=== PATIENT | male | born 1950 | race African-American/Black ===

== ENCOUNTER 2019-11-10 19:28 | IRF | payer MEDICARE, SELFPAY ==
[2019-11-10 18:49] VITALS: BMI 31.4
[2019-11-10 18:57] VITALS: BP 150/80; PULSE 89; RESP 20; TEMP 36.5; O2SAT 100
[2019-11-10 18:58] VITALS: BMI 31.4
--- NOTE | 2019-11-10 19:11 | PC.NURSE ---
This patient, Edison Tabares, was admitted to [facility] Room 223-02. Patient/family oriented to hospital policies and general routines including ID bracelet, bed and alarms, visiting hours, pain management, procedures, bathroom and other care routines, personal items, smoking policy, room service/diet, and visiting hours. Valuables list has been completed. Information on how to activate the Rapid Response Team has been discussed. Patient/Family are encouraged to report perceived risks to care and to ask questions if they do not understand what they are told or what they should do.
[2019-11-10 22:00] VITALS: BP 117/57; PULSE 62; RESP 16; TEMP 36.4; O2SAT 100
[2019-11-11 05:08] LABS: Basophils Percent Auto 0.4 % (0.2-1.2); Eosinophils Absolute Auto 0.3 K/mm3 (0-0.3); Eosinophils Percent Auto 3.6 % (0-4.4); Hematocrit 40.4 % (42.0-52.0); Hemoglobin 13.7 g/dL (14.0-18.0); Immature Granulocyte Absolute 0.02 K/mm3 (0.00-0.031); Immature Granulocyte Percent A 0.3 % (0-0.5); Lymphocytes Absolute Auto 2.25 K/mm3 (0.9-3.2); Mean Corpuscular HGB Conc 33.9 g/dl (32-36); Mean Corpuscular Hemoglobin 28.1 pg (26-34); Mean Platelet Volume 10.7 fl (7.4-10.4); Monocytes Absolute Auto 0.9 K/mm3 (0.1-0.6); Monocytes Percent Auto 11.5 % (2.6-8.5); Neutrophils Absolute Auto 4.1 K/mm3 (1.3-6.7); Neutrophils Percent Auto 54.2 % (45.5-73.1); Platelet Count Result 298 k/mm3 (150-375); Red Blood Count 4.87 M/mm3 (4.6-6.20); Red Cell Distribution Width 16.4 % (11.5-14.5); White Blood Count 7.5 K/mm3 (4.5-10.0)
[2019-11-11 05:24] LABS: Anion Gap 10 mmol/L (8-16); Blood Urea Nitrogen 21 mg/dL (9-20); Calcium 9.2 mg/dL (8.4-10.2); Carbon Dioxide 24 mmol/L (22-30); Chloride 109 mmol/L (98-107); Cholesterol 143 mg/dL (0-200); Estimated CRCL calculation 45 ml/min; Estimated Glomerular Filt Rate > 60; Glucose 100 mg/dL (75-110); HDL Direct 25 mg/dL; Potassium 3.9 mmol/L (3.4-5.0); Sodium 143 mmol/L (137-145); Triglycerides 113 mg/dL (<150)
[2019-11-11 05:35] LABS: LDL Cholesterol Direct 85 mg/dL
[2019-11-11 06:00] VITALS: BP 180/86; PULSE 64; RESP 18; TEMP 36.4; O2SAT 99
[2019-11-11] MEDS: hydrALAZINE HCL 25 MG TABLET PO ×3 (08:24→17:43)
[2019-11-11] MEDS: ATORVASTATIN 40 MG TABLET 80 MG PO (08:24)
[2019-11-11 08:25] VITALS: PULSE 64; RESP 18; O2SAT 99
[2019-11-11] MEDS: ASPIRIN 325 MG TABLET PO (08:25)
[2019-11-11] MEDS: CLOPIDOGREL BISULFATE 75 MG TABLET PO (08:25)
[2019-11-11] MEDS: amLODIPine BESYLATE 5 MG TABLET 10 MG PO (08:25)
--- NOTE | 2019-11-11 10:00 | PM.IMHP ---
H&P: HPI History of Present Illness Date/Time: 11/11/19 12:04 Chief complaint: CVA Narrative: Edison Tabares is a 69 year old male the primary rehab impairment category is stroke The etiologic diagnosis is, acute infarct in the right thalamus/ posterior limb of internal capsule. The patient was seen [id number] on November 11, 2019 at 10:00 a.m. The patient is a 69-year-old right-handed Afro-[place] male with a prior medical history of hypertension, hyperlipidemia and peripheral arterial disease on Plavix for the same who presented to [facility] Emergency Department on November 07, 2019 with new left-sided weakness. The patient reported that he had no issues when he went to bed a little after midnight on November 07, 2019 upon waking up at about 8:00 a.m. the patient noticed new left-sided weakness, but he fell back and asleep until noon. The patient then presented to the emergency department and was found to have with left-sided weakness, left upper extremity ataxia and extension and dysarthria. NIH SS of 3. Head CT showed no acute intracranial abnormalities. The patient did not receive tPA because he presented out of the window. The patient had elevated blood pressure at 160/100. He was started on hydralazine 25 milligram t.i.d. and labetalol 10 milligram injection p.r.n.. He will continue hydralazine 25 milligram t.i.d. for now and restart home medication patient which is amlodipine 10 milligram. The MRI revealed an acute infarct in the right thalamus/posterior limb of the internal capsule, microvascular ischemic disease with remote lacunar infarcts in bilateral basal ganglia and thalami with global brain parenchymal loss. Carotid Doppler showed less than 50% stenosis in bilateral internal carotid arteries. Neurology was consulted he was placed on aspirin and Plavix as well as an increase of atorvastatin to 80 milligram. TTE with normal LV size and systolic function, impaired LV relaxation. Nursing reported a fall on November 10, 2019 at approximately 3:46 a.m.. The patient reported he was trying to get out of the bed to go to the bathroom and fell on his hands and knees. Patient denies hitting his head pain or worsening weakness. Physician reported unchanged neurological examination. The patient is awake alert well oriented. He did not receive the loop recorder prior to discharge as the physician decided otherwise. Physical examination continues to reveal left-sided weakness left upper extremity ataxia and extension and left-sided neglect dysarthria balance impairment decreased gross motor control and decreased safety awareness. The patient is discharged T on Lovenox 40 milligram daily subcutaneously and aspirin 325 milligram p.o. daily The patient has not traveled outside the [place] or had contact with someone who is ill that has traveled outside the [place] in the past 21 days. The patient has not traveled to an area of the [place] that is experiencing known transmission of the Coronavirus and has not had close personal contact with anyone that has. The patient does not have a fever. The patient is not experiencing lower except lower respiratory illness symptoms. Therapy was initiated at the acute care facility and the patient was transferred to from [facility] on November 10, 2019. The patient has had no major surgery in the past 100 days. Patient has had falls in the past year. The patient has had no falls with injury in the past year. Past medical history, hypertension, hyperlipidemia, peripheral arterial disease on Plavix, and right eye loss during welding accident. 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 The patient lives with his significant other in 1 level home with 3 stairs to enter. The patient reported he was independent in all ADLs and IADLs less and mobility with assistive device in fact without any assistive device as he suni
[2019-11-11 14:00] VITALS: BP 127/63; PULSE 92; RESP 20; TEMP 36.8; O2SAT 100
--- NOTE | 2019-11-11 14:12 | RPD ---
INDIVIDUALIZED PLAN OF CARE FOR Edison Tabares Brief Synthesis of Pre-Admission Screen, Post-Admission Evaluation and Therapy Evaluations: The patient presents to rehab with acute infarct in the right thalamus/posterior limb internal capsule. Comorbidities include hypertension, hyperlipidemia, peripheral arterial disease (on plavix), right eye loss during welding accident, left-sided weakness, LUE ataxia and extinction, left-sided neglect, dysarthria, balance impairment, and decreased gross motor control. The complexity of the patient's medical management, nursing, and therapy needs require an inpatient rehab hospital stay with a physician-led interdisciplinary team approach. The patient?s needs will be best met in an intensive program vs. at a lower level of care. The patient requires physician services for neurology services, medical oversight, and coordination of care. The patient needs physician monitoring and treatment of new stroke, hypertension, falls/balance issues, monitoring for adverse reactions to new medications, monitoring of infection, and pain control. The patient requires nursing services for frequent neuro checks, anticoagulation therapy, medication management and education, pressure relief and skin care management, monitoring of labs, bowel and bladder training, and fall/safety precautions. Deficits include:ADLs, Balance, Cognition, Endurance, Family Training/Education, Mobility, Pain Management, ROM, Safety, Strength, and Transfers Hearing Aid Specialist/Case Management for: Discharge Planning and Patient/Family Counseling Physical Therapy: 5 days per week for 90 minutes. Treatments may include: Therapeutic Exercise, Gait Training, Neuromuscular Re-education, Transfer Training, Community Reintegration, Bed Mobility, Patient/Family Education, Wheelchair Mobility Group Therapy/Concurrent Therapy Rationales: -Improve attention span during functional activities in a distracted environment. -Enhance problem solving and/or adequate judgment skills during functional activities in a distracted environment. -Promote increased safety awareness in a distracted environment to reduce fall risk with functional tasks, transfers, and ambulation to allow a more safe, self-sufficient return to the home environment. -Improve dynamic balance skills to promote safety and independence with functional activities in a distracted environment for maximum gain. Occupational Therapy: 5 days per week for 90 minutes. Treatments may include: Therapeutic Exercise, Therapeutic Activity, Cognitive Training, Self-Care Transfer Training, Community Reintegration, Home Management, Patient/Family Education, Wheelchair Mobility Training, Energy Conservation Training Group Therapy/Concurrent Therapy Rationales: -Allow therapist to observe and teach generalization and carry-over of skills learned in individual therapy. -Enhance problem solving and sequencing skills during therapeutic activities in a distracted environment. -Promote increased safety awareness in a realistic setting to reduce fall risk with functional tasks due to visual and verbal distractions. -Increase functional level with ADLs, ADL transfers and use of adaptive equipment through therapeutic activities with others while promoting safety to allow a more safe, self-sufficient return home. Medical Prognosis: Good Anticipated Length of Stay: 14 days Rehab Goals: Eating Goal: 06-Independent Oral Hygiene Goal: 06-Independent Toileting Hygiene Goal: 06-Independent Shower/Bathe Self Goal: 06-Independent Upper Body Dressing Goal: 06-Independent Lower Body Dressing Goal: 06-Independent Putting On/Taking Off Footwear Goal: 06-Independent Rolling Left and Right Goal: 06-Independent Sit to Lying Goal: 06-Independent Lying to Sitting on Side of Bed Goal: 06-Independent Sit to Stand Goal: 06-Independent Chair/[id number] Transfer Goal: 06-Independent Toilet Transfer Goal: 06-Independent Car Transfer Goal: 06-Independent Walk
[2019-11-11 14:20] VITALS: BMI 31.4
[2019-11-11 20:00] VITALS: O2SAT 100
[2019-11-11 21:49] VITALS: BP 163/73; PULSE 68; RESP 20; TEMP 37.2; O2SAT 100
[2019-11-12 06:00] VITALS: BP 138/82; PULSE 82; RESP 20; TEMP 36.2; O2SAT 100
[2019-11-12] MEDS: amLODIPine BESYLATE 5 MG TABLET 10 MG PO (10:12)
[2019-11-12] MEDS: ATORVASTATIN 40 MG TABLET 80 MG PO (10:12)
[2019-11-12] MEDS: ASPIRIN 325 MG TABLET PO (10:12)
[2019-11-12] MEDS: hydrALAZINE HCL 25 MG TABLET PO ×3 (10:13→17:10)
[2019-11-12] MEDS: CLOPIDOGREL BISULFATE 75 MG TABLET PO (10:13)
[2019-11-12 14:00] VITALS: BP 159/76; PULSE 95; RESP 20; TEMP 36.8; O2SAT 100
[2019-11-12 22:00] VITALS: BP 149/65; PULSE 89; RESP 19; TEMP 36.1; O2SAT 98
[2019-11-13 06:00] VITALS: BP 151/88; PULSE 83; RESP 18; TEMP 36.7; O2SAT 97
[2019-11-13] MEDS: amLODIPine BESYLATE 5 MG TABLET 10 MG PO (08:47)
[2019-11-13] MEDS: CLOPIDOGREL BISULFATE 75 MG TABLET PO (08:48)
[2019-11-13] MEDS: ATORVASTATIN 40 MG TABLET 80 MG PO (08:48)
[2019-11-13] MEDS: hydrALAZINE HCL 25 MG TABLET PO ×3 (08:48→17:14)
[2019-11-13] MEDS: ASPIRIN 325 MG TABLET PO (08:48)
[2019-11-13 14:00] VITALS: BP 135/62; PULSE 86; RESP 20; TEMP 36.4; O2SAT 100
--- NOTE | 2019-11-13 17:14 | WPDNEURORHBP ---
Subjective Date/time seen: 11/13/19 17:14 Interval history: this 69-year-old Afro[place]er gentleman is here after having had stroke with a hemiparesis from which he is improving he is happy with the care he is receiving denies any headache nausea vomiting chest pain shortness of breath fever chills sore throat Review of Systems Review of Systems: All systems reviewed & are unremarkable except as noted in HPI and below Functional Status Ambulation Ability Ability to Ambulate 10 Feet: Minimum Assistance X 1 Ability to Ambulate 50 Feet With 2 Turns: Minimum Assistance X 1 Ambulation Assistive Devices: Walker, Wheeled Exam Const: General: comfortable and no acute distress HENMT: General nose exam: Normal nares present Mouth: Yes moist mucous membranes Eyes: Other: blind in the right eye from the welding accident in the distant past Neck: Neck: supple and no JVD Resp: Effort & Inspection: normal respiratory effort Auscultation: clear to auscultation bilaterally Cardio: Rate: regular rate Rhythm: regular rhythm GI: GI Palp: Yes Soft to palpation Auscultation: normal bowel sounds Skin: General skin exam: normal color and no rashes or lesions noted Neuro: Other: patient is awake alert well oriented with improving left-sided hemiparesis Extrem: General: normal to inspection Psych: Mental Status: mental status grossly normal Objective Data Vital Signs Vital Signs: Vital Signs - 24 hr 11/12/19 22:00 11/13/19 06:00 11/13/19 14:00 Temperature 36.1 C L 36.7 C 36.4 C Pulse Rate 89 83 86 Respiratory Rate 19 18 20 Blood Pressure 149/65 H 151/88 H 135/62 Pulse Oximetry 98 97 100 Intake/Output Intake/Output: Intake & Output 11/10/19 11/11/19 11/12/19 11/13/19 23:59 23:59 23:59 23:59 Intake Total 720 720 480 Balance 720 720 480 Meds/Results Medications: Active Medications Generic Name Dose Route Start Last Admin Trade Name Freq PRN Reason Stop Dose Admin Amlodipine Besylate 10 mg 11/11/19 09:00 11/13/19 08:47 Norvasc PO 10 mg DAILY NELDA Administration Aspirin 325 mg 11/11/19 09:00 11/13/19 08:48 Aspirin PO 11/29/19 09:01 325 mg DAILY NELDA Administration Atorvastatin Calcium 80 mg 11/11/19 09:00 11/13/19 08:48 Lipitor PO 80 mg DAILY NELDA Administration Clopidogrel Bisulfate 75 mg 11/11/19 09:00 11/13/19 08:48 Plavix PO 75 mg DAILY NELDA Administration Hydralazine HCl 25 mg 11/11/19 09:00 11/13/19 14:36 Apresoline Tablet PO 25 mg TID NELDA Administration Progress Note: A&P Assessment and Plan (1) Peripheral vascular disease: Code(s): I73.9 - Peripheral vascular disease, unspecified Status: Acute (2) Alcohol use: Code(s): Z72.89 - Other problems related to lifestyle Status: Acute (3) Smoking: Code(s): F17.200 - Nicotine dependence, unspecified, uncomplicated Status: Acute (4) Hypertension: Code(s): I10 - Essential (primary) hypertension Status: Acute (5) Left hemiparesis: Code(s): G81.94 - Hemiplegia, unspecified affecting left nondominant side Status: Acute (6) Stroke: Code(s): I63.9 - Cerebral infarction, unspecified Status: Acute (7) Blindness of right eye: Code(s): H54.40 - Blindness, one eye, unspecified eye Status: Acute Additional Plan we will continue present medical management PT OT and gait training
[2019-11-13 21:07] VITALS: BP 147/70; PULSE 90; RESP 18; TEMP 36.4; O2SAT 100
[2019-11-14 05:45] VITALS: BP 154/90; PULSE 96; RESP 20; TEMP 36.7; O2SAT 100
[2019-11-14] MEDS: hydrALAZINE HCL 25 MG TABLET PO ×3 (08:32→18:05)
[2019-11-14] MEDS: CLOPIDOGREL BISULFATE 75 MG TABLET PO (08:32)
[2019-11-14] MEDS: ATORVASTATIN 40 MG TABLET 80 MG PO (08:32)
[2019-11-14] MEDS: amLODIPine BESYLATE 5 MG TABLET 10 MG PO (08:32)
[2019-11-14] MEDS: ASPIRIN 325 MG TABLET PO (08:32)
--- NOTE | 2019-11-14 10:44 | P.PNNERE_ITS ---
Subjective Date/time seen: 11/14/19 10:44 69 years old male admitted to the rehab with acute infarct of the right thalamus, posterior limb of the internal capsule and has an ongoing history of 1. Hypertension 2. Hyperlipidemia 3. Peripheral arterial disease routine lab is normal except creatinine of 1.4 Review of Systems Review of Systems: All systems reviewed & are unremarkable except as noted in HPI and below Functional Status Ambulation Ability Ability to Ambulate 10 Feet: Minimum Assistance X 1 Ability to Ambulate 50 Feet With 2 Turns: Minimum Assistance X 1 Ambulation Assistive Devices: Walker, Wheeled Exam Narrative: Exam Narrative: examination reveals him to be awake alert in no obvious acute distress ear nose throat examination normal with no drainage from the nose and moist mucous membranes of the oral cavity obvious blindness in the right eye from the welding accident neck is supple with no JVD no restricted range of motion. Respiration clear with no rhonchi or crepitation. Heart regular. Abdomen is soft with normal bowel sounds. Skin clear. Neurological examination reveals him to be awake alert with left hemiparesis which is improving Objective Data Vital Signs Vital Signs: Vital Signs - 24 hr 11/13/19 14:00 11/13/19 21:07 11/14/19 05:45 Temperature 36.4 C 36.4 C 36.7 C Pulse Rate 86 90 96 Respiratory Rate 20 18 20 Blood Pressure 135/62 147/70 H 154/90 H Pulse Oximetry 100 100 100 Intake/Output Intake/Output: Intake & Output 11/11/19 11/12/19 11/13/19 11/14/19 23:59 23:59 23:59 23:59 Intake Total 720 720 720 240 Balance 720 720 720 240 Meds/Results Medications: Active Medications Generic Name Dose Route Start Last Admin Trade Name Freq PRN Reason Stop Dose Admin Amlodipine Besylate 10 mg 11/11/19 09:00 11/14/19 08:32 Norvasc PO 10 mg DAILY [facility] Administration Aspirin 325 mg 11/11/19 09:00 11/14/19 08:32 Aspirin PO 11/29/19 09:01 325 mg DAILY NELDA Administration Atorvastatin Calcium 80 mg 11/11/19 09:00 11/14/19 08:32 Lipitor PO 80 mg DAILY NELDA Administration Clopidogrel Bisulfate 75 mg 11/11/19 09:00 11/14/19 08:32 Plavix PO 75 mg DAILY NELDA Administration Hydralazine HCl 25 mg 11/11/19 09:00 11/14/19 08:32 Apresoline Tablet PO 25 mg TID NELDA Administration Progress Note: A&P Assessment and Plan (1) Blindness of right eye: Code(s): H54.40 - Blindness, one eye, unspecified eye Status: Acute (2) Peripheral vascular disease: Code(s): I73.9 - Peripheral vascular disease, unspecified Status: Acute (3) Alcohol use: Code(s): Z72.89 - Other problems related to lifestyle Status: Acute (4) Smoking: Code(s): F17.200 - Nicotine dependence, unspecified, uncomplicated Status: Acute (5) Hypertension: Code(s): I10 - Essential (primary) hypertension Status: Acute (6) Stroke: Code(s): I63.9 - Cerebral infarction, unspecified Status: Acute (7) Left hemiparesis: Code(s): G81.94 - Hemiplegia, unspecified affecting left nondominant side Status: Acute Additional Plan management will be continued as such
[2019-11-14 14:00] VITALS: BP 146/62; PULSE 81; RESP 20; TEMP 35.9; O2SAT 100
[2019-11-14 22:00] VITALS: BP 118/56; PULSE 91; RESP 18; TEMP 36.2; O2SAT 100
[2019-11-15 06:00] VITALS: BP 153/73; PULSE 85; RESP 19; TEMP 36.4; O2SAT 97
[2019-11-15] MEDS: amLODIPine BESYLATE 5 MG TABLET 10 MG PO (08:02)
[2019-11-15] MEDS: ASPIRIN 325 MG TABLET PO (08:02)
[2019-11-15] MEDS: hydrALAZINE HCL 25 MG TABLET PO ×3 (08:02→18:14)
[2019-11-15] MEDS: CLOPIDOGREL BISULFATE 75 MG TABLET PO (08:03)
[2019-11-15] MEDS: ATORVASTATIN 40 MG TABLET 80 MG PO (08:03)
--- NOTE | 2019-11-15 09:29 | PCPTNOTE ---
Edison Tabares was evaluated for a wheeled waker on 11/15/2019 by this physical therapist. The wheeled walker will resolve patient's mobility limitations and will be used for ADL's within the home. The patient can safely use the wheeled walker. ?The wheeled walker will resolve the patient?s mobility deficits, including endurance, balance and LE weakness.
--- NOTE | 2019-11-15 09:31 | PCPTNOTE ---
Addendum entered by Coni Zepeda PT 11/15/19 09:37: Seat to floor no greater than 18 (height 5'5 ) Original Note: Coni Zepeda PT completed an inpatient rehab wheelchair evaluation on Edison Tabares on 11/15/2019. The patient is unable to safely and independently ambulate household distances due to their current impairments. Their diagnosis is CVA and their impairments include decreased strength, decreased endurance, decreased range of motion, decreased balance, lower extremity weakness, and ataxia. Mr. Tabares's weight bearing status is weight-bearing as tolerated on the bilateral lower legs. The patient demonstrates significant functional mobility limitations that impair their ability to participate in mobility-related activities of daily living (MRADLs), including toileting, feeding, dressing, grooming, and bathing in the customary locations in the home. These limitations cannot be sufficiently resolved by the use of an appropriately fitted cane or walker. It is recommended that the patient utilize a wheelchair for functional mobility within the home in order to facilitate optimal safety, independence and participation in all MRADL's and adequately access their home environment on a regular basis. The patient's home provides adequate access between rooms, maneuvering space, and surfaces to accommodate the recommended wheelchair. The use of a wheelchair for functional mobility is strongly recommended and the patient is receptive to using the wheelchair. The use of this wheelchair will significantly improve the patient's ability to participate in MRADLS and the patient will use it on a regular basis in the home. This will facilitate optimal safety, independence, and participation. The patient has demonstrated sufficient physical and mental capabilities needed to safely propel a manual wheelchair that is provided in the home during a typical day. Recommended Wheelchair Frame: Standard Recommended Wheelchair Size: 18 x18 Recommended Wheelchair Cushion: standard Wheelchair Leg Recommendations: bilateral swing away -Anti-tippers are recommended due to patient demonstrating increased risk for falls. They would benefit from anti-tippers with added safety and stabilization. _Coni Zepeda PT ___11/15/19 Evaluating Therapist Date I agree with and certify that the above recommendation is medically necessary. Referring Physician Date
--- NOTE | 2019-11-15 13:09 | WPDNEURORHBP ---
Subjective Date/time seen: 11/15/19 13:09 Interval history: this 69-year-old gentleman is here after having had stroke with the left-sided weakness is progressing quite well he walked 150 feet with wheel walker the reports from the nurse occupational therapist physical therapist is quite good likewise the speech therapy is also good he will need the family training. Denies any headache nausea vomiting chest pain shortness of breath fever chills sore throat Review of Systems Review of Systems: All systems reviewed & are unremarkable except as noted in HPI and below Functional Status Ambulation Ability Ability to Ambulate 10 Feet: Minimum Assistance X 1 Ability to Ambulate 50 Feet With 2 Turns: Minimum Assistance X 1 Ambulation Assistive Devices: Walker, Wheeled Exam Const: General: comfortable and no acute distress HENMT: General nose exam: Normal nares present Mouth: Yes moist mucous membranes Eyes: General: appearance normal, both eyes and all related structures Neck: Neck: supple and no JVD Resp: Effort & Inspection: normal respiratory effort Auscultation: clear to auscultation bilaterally Cardio: Rate: regular rate Rhythm: regular rhythm GI: GI Palp: Yes Soft to palpation Auscultation: normal bowel sounds Skin: General skin exam: normal color and no rashes or lesions noted Neuro: Other: patient is awake and alert well oriented the blindness in the right eye which is of almost 20 years duration remains stable is functioning with the left eye quite well his hemiparesis is improving Extrem: General: normal to inspection Psych: Mental Status: mental status grossly normal Objective Data Vital Signs Vital Signs: Vital Signs - 24 hr 11/14/19 14:00 11/14/19 22:00 11/15/19 06:00 Temperature 35.9 C L 36.2 C L 36.4 C Pulse Rate 81 91 85 Respiratory Rate 20 18 19 Blood Pressure 146/62 H 118/56 L 153/73 H Pulse Oximetry 100 100 97 Intake/Output Intake/Output: Intake & Output 11/12/19 11/13/19 11/14/19 11/15/19 23:59 23:59 23:59 23:59 Intake Total 720 720 840 240 Balance 720 720 840 240 Meds/Results Medications: Active Medications Generic Name Dose Route Start Last Admin Trade Name Freq PRN Reason Stop Dose Admin Amlodipine Besylate 10 mg 11/11/19 09:00 11/15/19 08:02 Norvasc PO 10 mg DAILY NELDA Administration Aspirin 325 mg 11/11/19 09:00 11/15/19 08:02 Aspirin PO 11/29/19 09:01 325 mg DAILY NELDA Administration Atorvastatin Calcium 80 mg 11/11/19 09:00 11/15/19 08:03 Lipitor PO 80 mg DAILY NELDA Administration Clopidogrel Bisulfate 75 mg 11/11/19 09:00 11/15/19 08:03 Plavix PO 75 mg DAILY NELDA Administration Hydralazine HCl 25 mg 11/11/19 09:00 11/15/19 13:04 Apresoline Tablet PO 25 mg TID NELDA Administration Progress Note: A&P Assessment and Plan (1) Blindness of right eye: Code(s): H54.40 - Blindness, one eye, unspecified eye Status: Acute (2) Peripheral vascular disease: Code(s): I73.9 - Peripheral vascular disease, unspecified Status: Acute (3) Alcohol use: Code(s): Z72.89 - Other problems related to lifestyle Status: Acute (4) Smoking: Code(s): F17.200 - Nicotine dependence, unspecified, uncomplicated Status: Acute (5) Hypertension: Code(s): I10 - Essential (primary) hypertension Status: Acute (6) Left hemiparesis: Code(s): G81.94 - Hemiplegia, unspecified affecting left nondominant side Status: Acute (7) Stroke: Code(s): I63.9 - Cerebral infarction, unspecified Status: Acute Additional Plan discussed the team conference with the significant other on the telephone the progress was appraised to her and also to the patient tentative discharge planning is for November 22, 2019 and family training will be needed he will need the wheel walker
[2019-11-15 14:00] VITALS: BP 141/94; PULSE 98; RESP 16; TEMP 36.6; O2SAT 100
[2019-11-15 20:00] VITALS: PULSE 91; RESP 18; O2SAT 100
[2019-11-15 22:00] VITALS: BP 100/48; PULSE 91; RESP 18; TEMP 36.6; O2SAT 100
[2019-11-16 06:00] VITALS: BP 144/63; PULSE 84; RESP 17; TEMP 37.1; O2SAT 99
[2019-11-16] MEDS: amLODIPine BESYLATE 5 MG TABLET 10 MG PO (08:19)
[2019-11-16] MEDS: hydrALAZINE HCL 25 MG TABLET PO ×3 (08:20→17:03)
[2019-11-16] MEDS: CLOPIDOGREL BISULFATE 75 MG TABLET PO (08:20)
[2019-11-16] MEDS: ASPIRIN 325 MG TABLET PO (08:20)
[2019-11-16] MEDS: ATORVASTATIN 40 MG TABLET 80 MG PO (08:21)
--- NOTE | 2019-11-16 11:30 | PCOTNOTE ---
Mr. Tabares was evaluated for a tub transfer bench 11/16/19 by this occupational therapist. The tub transfer bench will resolve that patient?s self-care limitations in bathing and will be used for ADL?s within the home. The patient is unable to step over edge of tub safely or tolerate standing while maintaining balance for completion of bathing due to left weakness, left neglect, ataxia, and impaired balance following CVA. The patient can safely use the tub transfer bench. The patient?s significant other and daughter have participated in family training and exhibit good understanding of safety with assisting patient with use. The tub transfer bench will decrease caregiver burden and allow for safety with care of patient in his home. I agree with and certify that the above recommendation is medically necessary. Referring Physician Date
--- NOTE | 2019-11-16 12:54 | PCDIET ---
Nutrition Follow-Up Complete: Nutrition Diagnosis: Involuntary weight loss related to decreased appetite as evidenced by patient report of 2-13 pound weight loss without trying and associated poor appetite. Nutrition Goal: Patient to consume 50% of meals/supplements or greater and maintain weight Goal met. Patient consuming 100% of meals on regular diet + Ensure Enlive supplement. Patient would like to continue Enlive which is acceptable; however, encouraged patient to moderate empty kcal intake (i.e. soda and cookies with lunch). Heart healthy diet discussed with patient and spouse. Weight management also encouraged. Last recorded weight is 85.5 kg. Recommend obtaining new weight. Bowel Motility: Last BM documented on 11/13/19. Labs Reviewed: No new BMP available. Meds Noted: Norvasc, Plavix, Apresoline Additional Notes: No documented skin breakdown. Will continue to monitor with same goal. Nutrition Monitoring and Evaluation: Follow up every 7 days.
[2019-11-16 14:00] VITALS: BP 122/75; PULSE 92; RESP 20; TEMP 36.9; O2SAT 100
--- NOTE | 2019-11-16 15:07 | WPDNEURORHBP ---
Subjective Date/time seen: 11/16/19 15:07 Interval history: this 69-year-old is here status post stroke with left-sided hemiparesis his doing fairly well making progress denies any headache nausea vomiting chest pain shortness of breath fever chills sore throat Review of Systems Review of Systems: All systems reviewed & are unremarkable except as noted in HPI and below Functional Status Ambulation Ability Ability to Ambulate 10 Feet: Contact Guard Ability to Ambulate 50 Feet With 2 Turns: Contact Guard Ability to Ambulate 150 Feet: Contact Guard Ambulation Assistive Devices: Walker, Wheeled Exam Const: General: comfortable and no acute distress HENMT: General nose exam: Normal nares present Mouth: Yes moist mucous membranes Eyes: General: appearance normal, both eyes and all related structures Neck: Neck: supple and no JVD Resp: Effort & Inspection: normal respiratory effort Auscultation: clear to auscultation bilaterally Cardio: Rate: regular rate Rhythm: regular rhythm GI: GI Palp: Yes Soft to palpation Auscultation: normal bowel sounds Skin: General skin exam: normal color and no rashes or lesions noted Neuro: Other: patient is awake alert well oriented in time place and person has normal speech and language function 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 and improving left-sided hemiparesis Extrem: General: normal to inspection Psych: Mental Status: mental status grossly normal Objective Data Vital Signs Vital Signs: Vital Signs - 24 hr 11/15/19 20:00 11/15/19 22:00 11/16/19 06:00 Temperature 36.6 C 37.1 C Pulse Rate 91 91 84 Respiratory Rate 18 18 17 Blood Pressure 100/48 L 144/63 H Pulse Oximetry 100 100 99 Intake/Output Intake/Output: Intake & Output 11/13/19 11/14/19 11/15/19 11/16/19 23:59 23:59 23:59 23:59 Intake Total 720 840 950 240 Balance 720 840 950 240 Meds/Results Medications: Active Medications Generic Name Dose Route Start Last Admin Trade Name Freq PRN Reason Stop Dose Admin Amlodipine Besylate 10 mg 11/11/19 09:00 11/16/19 08:19 Norvasc PO 10 mg DAILY NELDA Administration Aspirin 325 mg 11/11/19 09:00 11/16/19 08:20 Aspirin PO 11/29/19 09:01 325 mg DAILY NELDA Administration Atorvastatin Calcium 80 mg 11/11/19 09:00 11/16/19 08:21 Lipitor PO 80 mg DAILY NELDA Administration Clopidogrel Bisulfate 75 mg 11/11/19 09:00 11/16/19 08:20 Plavix PO 75 mg DAILY NELDA Administration Hydralazine HCl 25 mg 11/11/19 09:00 11/16/19 13:25 Apresoline Tablet PO 25 mg TID NELDA Administration Polyethylene Glycol 17 gm 11/16/19 21:00 Miralax PO HS NELDA Senna 17.2 mg 11/16/19 21:00 Senokot Tablet PO HS NELDA Progress Note: A&P Assessment and Plan (1) Blindness of right eye: Code(s): H54.40 - Blindness, one eye, unspecified eye Status: Acute (2) Peripheral vascular disease: Code(s): I73.9 - Peripheral vascular disease, unspecified Status: Acute (3) Alcohol use: Code(s): Z72.89 - Other problems related to lifestyle Status: Acute (4) Smoking: Code(s): F17.200 - Nicotine dependence, unspecified, uncomplicated Status: Acute (5) Hypertension: Code(s): I10 - Essential (primary) hypertension Status: Acute (6) Left hemiparesis: Code(s): G81.94 - Hemiplegia, unspecified affecting left nondominant side Status: Acute (7) Stroke: Code(s): I63.9 - Cerebral infarction, unspecified Status: Acute Additional Plan we will continue the present medical management PT OT and gait training
[2019-11-16 22:00] VITALS: BP 134/64; PULSE 86; RESP 17; TEMP 36.6; O2SAT 98
[2019-11-17 06:00] VITALS: BP 140/69; PULSE 87; RESP 17; TEMP 36.7; O2SAT 96
[2019-11-17] MEDS: amLODIPine BESYLATE 5 MG TABLET 10 MG PO (08:16)
[2019-11-17] MEDS: hydrALAZINE HCL 25 MG TABLET PO ×3 (08:16→17:16)
[2019-11-17] MEDS: CLOPIDOGREL BISULFATE 75 MG TABLET PO (08:16)
[2019-11-17] MEDS: ASPIRIN 325 MG TABLET PO (08:16)
[2019-11-17] MEDS: ATORVASTATIN 40 MG TABLET 80 MG PO (08:17)
[2019-11-17 09:40] VITALS: PULSE 86; RESP 16; O2SAT 96
--- NOTE | 2019-11-17 11:22 | WPDNEURORHBP ---
Subjective Date/time seen: 11/17/19 11:22 Interval history: this 69-year-old Afro [place] gentleman is here with left-sided hemiparesis he is doing fairly well making excellent progress denies any headache nausea vomiting chest pain shortness of breath fever chills sore throat Review of Systems Review of Systems: All systems reviewed & are unremarkable except as noted in HPI and below Functional Status Ambulation Ability Ability to Ambulate 10 Feet: Contact Guard Ability to Ambulate 50 Feet With 2 Turns: Contact Guard Ability to Ambulate 150 Feet: Contact Guard Ambulation Assistive Devices: Walker, Wheeled Exam Narrative: Exam Narrative: the patient is awake and alert well oriented not any distress Const: General: comfortable and no acute distress HENMT: Head: normal to inspection Face and sinus: normal facial exam Mouth: Yes Normal oral and palatal mucosa present Neck: Neck: normal visual inspection and full ROM Resp: Effort & Inspection: normal respiratory effort and able to speak in complete sentences Cardio: Jugular venous distension: no JVD and JVD Rate: regular rate GI: Inspection: normal to inspection Back/Spine/Pelvis: Back: no CVA tenderness Skin: General skin exam: normal color and no rashes or lesions noted Neuro: Other: patient is awake alert well oriented time place and person his speech and language functions are normal cranial examination is normal his strength in the upper lower extremity slightly decreased because of the diabetic neuropathy with some loss of muscle bulk in the hands of course left hemiparesis is improving Extrem: General: normal to inspection Objective Data Vital Signs Vital Signs: Vital Signs - 24 hr 11/16/19 14:00 11/16/19 22:00 11/17/19 06:00 Temperature 36.9 C 36.6 C 36.7 C Pulse Rate 92 86 87 Respiratory Rate 20 17 17 Blood Pressure 122/75 134/64 140/69 Pulse Oximetry 100 98 96 11/17/19 09:40 Temperature Pulse Rate 86 Respiratory Rate 16 Blood Pressure Pulse Oximetry 96 Intake/Output Intake/Output: Intake & Output 11/14/19 11/15/19 11/16/19 11/17/19 23:59 23:59 23:59 23:59 Intake Total 840 950 720 240 Balance 840 950 720 240 Meds/Results Medications: Active Medications Generic Name Dose Route Start Last Admin Trade Name Freq PRN Reason Stop Dose Admin Amlodipine Besylate 10 mg 11/11/19 09:00 10/08/20 08:16 Norvasc PO 10 mg DAILY NELDA Administration Aspirin 325 mg 11/11/19 09:00 11/17/19 08:16 Aspirin PO 11/29/19 09:01 325 mg DAILY NELDA Administration Atorvastatin Calcium 80 mg 11/11/19 09:00 11/17/19 08:17 Lipitor PO 80 mg DAILY NELDA Administration Clopidogrel Bisulfate 75 mg 11/11/19 09:00 11/17/19 08:16 Plavix PO 75 mg DAILY NELDA Administration Hydralazine HCl 25 mg 11/11/19 09:00 11/17/19 08:16 Apresoline Tablet PO 25 mg TID NELDA Administration Polyethylene Glycol 17 gm 11/16/19 21:00 11/16/19 19:53 Miralax PO Not Given HS NELDA Senna 17.2 mg 11/16/19 21:00 11/16/19 19:53 Senokot Tablet PO Not Given HS NELDA Progress Note: A&P Assessment and Plan (1) Blindness of right eye: Code(s): H54.40 - Blindness, one eye, unspecified eye Status: Acute (2) Peripheral vascular disease: Code(s): I73.9 - Peripheral vascular disease, unspecified Status: Acute (3) Alcohol use: Code(s): Z72.89 - Other problems related to lifestyle Status: Acute (4) Smoking: Code(s): F17.200 - Nicotine dependence, unspecified, uncomplicated Status: Acute (5) Hypertension: Code(s): I10 - Essential (primary) hypertension Status: Acute (6) Left hemiparesis: Code(s): G81.94 - Hemiplegia, unspecified affecting left nondominant side Status: Acute Additional Plan continue present medical management PT OT and gait training
[2019-11-17 14:00] VITALS: BP 140/80; PULSE 92; RESP 20; TEMP 36.3; O2SAT 100
[2019-11-17] MEDS: SENNOSIDES 8.6 MG TABLET 17.2 MG PO (20:12)
[2019-11-17] MEDS: polyethylene glycoL 3350 17 GM POWD.PACK PO (20:12)
[2019-11-17 22:00] VITALS: BP 135/69; PULSE 93; RESP 20; TEMP 37.8; O2SAT 98
[2019-11-18 05:40] LABS: Basophils Percent Auto 0.4 % (0.2-1.2); Eosinophils Absolute Auto 0.4 K/mm3 (0-0.3); Eosinophils Percent Auto 4.7 % (0-4.4); Hematocrit 34.2 % (42.0-52.0); Hemoglobin 11.3 g/dL (14.0-18.0); Immature Granulocyte Absolute 0.02 K/mm3 (0.00-0.031); Immature Granulocyte Percent A 0.3 % (0-0.5); Lymphocytes Absolute Auto 1.77 K/mm3 (0.9-3.2); Lymphocytes Percent Auto 22.9 % (18.3-44.2); Mean Corpuscular Hemoglobin 27.7 pg (26-34); Mean Corpuscular Volume 83.8 fl (80-100); Mean Platelet Volume 10.8 fl (7.4-10.4); Monocytes Absolute Auto 0.9 K/mm3 (0.1-0.6); Monocytes Percent Auto 11.1 % (2.6-8.5); Neutrophils Absolute Auto 4.7 K/mm3 (1.3-6.7); Neutrophils Percent Auto 60.6 % (45.5-73.1); Platelet Count Result 332 k/mm3 (150-375); Red Blood Count 4.08 M/mm3 (4.6-6.20); Red Cell Distribution Width 15.9 % (11.5-14.5); White Blood Count 7.7 K/mm3 (4.5-10.0)
[2019-11-18 06:00] VITALS: BP 109/60; PULSE 84; RESP 20; TEMP 37.4; O2SAT 100
[2019-11-18 06:09] LABS: Anion Gap 6 mmol/L (8-16); Blood Urea Nitrogen 14 mg/dL (9-20); Calcium 9.2 mg/dL (8.4-10.2); Carbon Dioxide 28 mmol/L (22-30); Chloride 107 mmol/L (98-107); Estimated CRCL calculation 62 ml/min; Estimated Glomerular Filt Rate > 60; Glucose 96 mg/dL (75-110); Potassium 3.7 mmol/L (3.4-5.0); Sodium 141 mmol/L (137-145)
[2019-11-18] MEDS: ATORVASTATIN 40 MG TABLET 80 MG PO (08:39)
[2019-11-18] MEDS: hydrALAZINE HCL 25 MG TABLET PO ×3 (08:39→17:27)
[2019-11-18] MEDS: amLODIPine BESYLATE 5 MG TABLET 10 MG PO (08:39)
[2019-11-18] MEDS: CLOPIDOGREL BISULFATE 75 MG TABLET PO (08:39)
[2019-11-18] MEDS: ASPIRIN 325 MG TABLET PO (08:39)
[2019-11-18 08:41] VITALS: PULSE 86; RESP 18; O2SAT 100
--- NOTE | 2019-11-18 13:47 | WPDNEURORHBP ---
Subjective Date/time seen: 11/18/19 13:47 Interval history: this 69-year-old gentleman is here after having had stroke with left-sided hemiparesis from which he is improving he denies any headache nausea vomiting chest pain shortness of breath fever chills sore throats his walking quite a bit and making excellent progress Review of Systems Review of Systems: All systems reviewed & are unremarkable except as noted in HPI and below Functional Status Ambulation Ability Ability to Ambulate 10 Feet: Standby Assistance Ability to Ambulate 50 Feet With 2 Turns: Contact Guard Ability to Ambulate 150 Feet: Contact Guard Ambulation Assistive Devices: Walker, Wheeled Exam Narrative: Exam Narrative: patient remains awake alert well oriented in time place person with normal speech and language function normal cranial examination is save the blindness in the right eye which is longstanding, and moderate left hemiparesis which is improving with brisk reflexes and positive Babinski sign on the side Head is normocephalic, ENT examination is normal hearing is intact neck is supple, chest is clear cardiovascular examination negative abdomen is not tender extremities reveal no deformities Objective Data Vital Signs Vital Signs: Vital Signs - 24 hr 11/17/19 14:00 11/17/19 22:00 11/18/19 06:00 Temperature 36.3 C L 37.8 C H 37.4 C Pulse Rate 92 93 84 Respiratory Rate 20 20 20 Blood Pressure 140/80 135/69 109/60 Pulse Oximetry 100 98 100 11/18/19 08:41 Temperature Pulse Rate 86 Respiratory Rate 18 Blood Pressure Pulse Oximetry 100 Intake/Output Intake/Output: Intake & Output 11/15/19 11/16/19 11/17/19 11/18/19 23:59 23:59 23:59 23:59 Intake Total 650 628 3775 240 Balance 751 225 0414 240 Meds/Results Medications: Active Medications Generic Name Dose Route Start Last Admin Trade Name Freq PRN Reason Stop Dose Admin Amlodipine Besylate 10 mg 11/11/19 09:00 11/18/19 08:39 Norvasc PO 10 mg DAILY NELDA Administration Aspirin 325 mg 11/11/19 09:00 11/18/19 08:39 Aspirin PO 11/29/19 09:01 325 mg DAILY NELDA Administration Atorvastatin Calcium 80 mg 11/11/19 09:00 11/18/19 08:39 Lipitor PO 80 mg DAILY NELDA Administration Clopidogrel Bisulfate 75 mg 11/11/19 09:00 11/18/19 08:39 Plavix PO 75 mg DAILY NELDA Administration Hydralazine HCl 25 mg 11/11/19 09:00 11/18/19 12:20 Apresoline Tablet PO 25 mg TID NELDA Administration Polyethylene Glycol 17 gm 11/16/19 21:00 11/17/19 20:12 Miralax PO 17 gm HS NELDA Administration Senna 17.2 mg 11/16/19 21:00 11/17/19 20:12 Senokot Tablet PO 17.2 mg HS NELDA Administration Labs Labs: Laboratory Results - last 24 hr 11/18/19 11/18/19 05:14 05:14 WBC 7.7 RBC 4.08 L Hgb 11.3 L Hct 34.2 L MCV 83.8 MCH 27.7 MCHC 33.0 RDW 15.9 H Plt Count 332 MPV 10.8 H Immature Gran % (Auto) 0.3 Neut % (Auto) 60.6 Lymph % (Auto) 22.9 [place] % (Auto) 11.1 H Eos % (Auto) 4.7 H Baso % (Auto) 0.4 Lymph # (Auto) 1.77 [place] # (Auto) 0.9 H Eos # (Auto) 0.4 H Baso # (Auto) 0.0 Abs Immat Gran (auto) 0.02 Absolute Neuts (auto) 4.7 Absolute Nucleated RBC 0.0 Nucleated RBC % 0.0 Sodium 141 Potassium 3.7 Chloride 107 Carbon Dioxide 28 Anion Gap 6 L BUN 14 D Creatinine 1.00 Estim Creat Clear Calc 62 Estimated GFR > 60 Glucose 96 Calcium 9.2 Progress Note: A&P Assessment and Plan (1) Blindness of right eye: Code(s): H54.40 - Blindness, one eye, unspecified eye Status: Acute (2) Alcohol use: Code(s): Z72.89 - Other problems related to lifestyle Status: Acute (3) Smoking: Code(s): F17.200 - Nicotine dependence, unspecified, uncomplicated Status: Acute (4) Hypertension: Code(s): I10 - Essential (primary) hypertension Status: Acute (5) Left hemiparesis: Code(s): G81.94 - Hemiplegia
[2019-11-18 14:00] VITALS: BP 135/68; PULSE 93; RESP 20; TEMP 36.5; O2SAT 100
[2019-11-18 20:26] VITALS: BP 163/82; PULSE 90; RESP 18; TEMP 36.8; O2SAT 100
[2019-11-18] MEDS: SENNOSIDES 8.6 MG TABLET 17.2 MG PO (20:44)
[2019-11-18] MEDS: polyethylene glycoL 3350 17 GM POWD.PACK PO (20:45)
[2019-11-19 04:58] VITALS: BP 126/61; PULSE 79; RESP 18; TEMP 36.6; O2SAT 100
[2019-11-19] MEDS: ATORVASTATIN 40 MG TABLET 80 MG PO (09:25)
[2019-11-19] MEDS: amLODIPine BESYLATE 5 MG TABLET 10 MG PO (09:25)
[2019-11-19] MEDS: hydrALAZINE HCL 25 MG TABLET PO ×3 (09:25→17:58)
[2019-11-19] MEDS: ASPIRIN 325 MG TABLET PO (09:25)
[2019-11-19] MEDS: CLOPIDOGREL BISULFATE 75 MG TABLET PO (09:25)
--- NOTE | 2019-11-19 13:47 | WPDNEURORHBP ---
Subjective Date/time seen: 11/19/19 13:47 69 YEARS OLD ADMITTED TO THE REHAB FLOOR WITH LEFT HEMIPARESIS AT PRESENT HE IS INVOLVED IN THE PHYSICAL THERAPY AND OCCUPATIONAL THERAPY HAND HAS NO SPECIFIC ACUTE SYMPTOMS ROUTINE LAB IS NORMAL Review of Systems Review of Systems: All systems reviewed & are unremarkable except as noted in HPI and below Functional Status Ambulation Ability Ability to Ambulate 10 Feet: Contact Guard Ability to Ambulate 50 Feet With 2 Turns: Contact Guard Ability to Ambulate 150 Feet: Contact Guard Ambulation Assistive Devices: Walker, Wheeled Exam Narrative: Exam Narrative: EXAMINATION TODAY REVEALS HIM TO BE AWAKE ALERT ORIENTED X3 HIS SPEECH NOR DYSPHASIC NO DYSARTHRIC NOT DYSPHONIC THE CRANIAL EXAMINATION IS NORMAL EXCEPT THE BLINDNESS IN THE RIGHT EYE OF LONGSTANDING DURATION IN ADDITION TO THE LEFT HEMIPARESIS FOR THE PRESENT STROKE Objective Data Vital Signs Vital Signs: Vital Signs - 24 hr 11/18/19 14:00 11/18/19 20:26 11/19/19 04:58 Temperature 36.5 C 36.8 C 36.6 C Pulse Rate 93 90 79 Respiratory Rate 20 18 18 Blood Pressure 135/68 163/82 H 126/61 Pulse Oximetry 100 100 100 Intake/Output Intake/Output: Intake & Output 11/16/19 11/17/19 11/18/19 11/19/19 23:59 23:59 23:59 23:59 Intake Total 720 1080 720 480 Balance 720 1080 720 480 Meds/Results Medications: Active Medications Generic Name Dose Route Start Last Admin Trade Name Freq PRN Reason Stop Dose Admin Amlodipine Besylate 10 mg 11/11/19 09:00 11/19/19 09:25 Norvasc PO 10 mg DAILY NELDA Administration Aspirin 325 mg 11/11/19 09:00 11/19/19 09:25 Aspirin PO 11/29/19 09:01 325 mg DAILY NELDA Administration Atorvastatin Calcium 80 mg 11/11/19 09:00 11/19/19 09:25 Lipitor PO 80 mg DAILY NELDA Administration Clopidogrel Bisulfate 75 mg 11/11/19 09:00 11/19/19 09:25 Plavix PO 75 mg DAILY NELDA Administration Hydralazine HCl 25 mg 11/11/19 09:00 11/19/19 12:47 Apresoline Tablet PO 25 mg TID NELDA Administration Polyethylene Glycol 17 gm 11/16/19 21:00 11/18/19 20:45 Miralax PO 17 gm HS NELDA Administration Senna 17.2 mg 11/16/19 21:00 11/18/19 20:44 Senokot Tablet PO 17.2 mg HS NELDA Administration Progress Note: A&P Assessment and Plan (1) Blindness of right eye: Code(s): H54.40 - Blindness, one eye, unspecified eye Status: Acute (2) Peripheral vascular disease: Code(s): I73.9 - Peripheral vascular disease, unspecified Status: Acute (3) Alcohol use: Code(s): Z72.89 - Other problems related to lifestyle Status: Acute (4) Smoking: Code(s): F17.200 - Nicotine dependence, unspecified, uncomplicated Status: Acute (5) Hypertension: Code(s): I10 - Essential (primary) hypertension Status: Acute (6) Left hemiparesis: Code(s): G81.94 - Hemiplegia, unspecified affecting left nondominant side Status: Acute (7) Stroke: Code(s): I63.9 - Cerebral infarction, unspecified Status: Acute Additional Plan WILL CONTINUE THE PHYSICAL THERAPY AND OCCUPATION THERAPY SUCH ALONG WITH A GAIT TRAINING
[2019-11-19 14:00] VITALS: BP 117/58; PULSE 86; RESP 16; TEMP 36.6; O2SAT 100
[2019-11-19] MEDS: SENNOSIDES 8.6 MG TABLET 17.2 MG PO (20:03)
[2019-11-19] MEDS: polyethylene glycoL 3350 17 GM POWD.PACK PO (20:04)
[2019-11-19 21:07] VITALS: BP 122/53; PULSE 89; RESP 20; TEMP 37.2; O2SAT 99
[2019-11-20 05:12] VITALS: BP 131/83; PULSE 82; RESP 20; TEMP 36.6; O2SAT 100
[2019-11-20 08:00] VITALS: PULSE 82; RESP 20; O2SAT 100
[2019-11-20] MEDS: ASPIRIN 325 MG TABLET PO (08:31)
[2019-11-20] MEDS: hydrALAZINE HCL 25 MG TABLET PO ×3 (08:31→17:22)
[2019-11-20] MEDS: CLOPIDOGREL BISULFATE 75 MG TABLET PO (08:31)
[2019-11-20] MEDS: ATORVASTATIN 40 MG TABLET 80 MG PO (08:31)
[2019-11-20] MEDS: amLODIPine BESYLATE 5 MG TABLET 10 MG PO (08:32)
[2019-11-20 14:00] VITALS: BP 114/60; PULSE 95; RESP 16; TEMP 36.8; O2SAT 95
[2019-11-20] MEDS: SENNOSIDES 8.6 MG TABLET 17.2 MG PO (20:08)
[2019-11-20] MEDS: polyethylene glycoL 3350 17 GM POWD.PACK PO (20:08)
[2019-11-20 22:00] VITALS: BP 131/60; PULSE 90; RESP 18; TEMP 37.1; O2SAT 100
[2019-11-21 06:00] VITALS: BP 141/80; PULSE 86; RESP 20; TEMP 37.2; O2SAT 100
[2019-11-21] MEDS: amLODIPine BESYLATE 5 MG TABLET 10 MG PO (08:33)
[2019-11-21] MEDS: CLOPIDOGREL BISULFATE 75 MG TABLET PO (08:33)
[2019-11-21] MEDS: hydrALAZINE HCL 25 MG TABLET PO ×3 (08:33→17:06)
[2019-11-21] MEDS: ASPIRIN 325 MG TABLET PO (08:33)
[2019-11-21] MEDS: ATORVASTATIN 40 MG TABLET 80 MG PO (08:33)
--- NOTE | 2019-11-21 10:14 | WPDNEURORHBP ---
Subjective Date/time seen: 11/21/19 10:14 69 YEARS OLD WITH LEFT HEMIPARESIS HAS BEEN INVOLVED IN THERAPY HAS NO SPECIFIC COMPLAINTS ON TODAY'S VISIT ABLE TO AMBULATE UP TO 150FT WITH CONTACT GUARD AND A WHEELED WALKER LAB ON 11/17 WAS UNREMARKABLE AND VITAL SIGNS TODAY ARE STABLE Review of Systems Review of Systems: All systems reviewed & are unremarkable except as noted in HPI and below Functional Status Ambulation Ability Ability to Ambulate 10 Feet: Standby Assistance Ability to Ambulate 50 Feet With 2 Turns: Contact Guard Ability to Ambulate 150 Feet: Contact Guard Ambulation Assistive Devices: Walker, Wheeled Exam Narrative: Exam Narrative: EXAMINATION REVEALS AWAKE ALERT ORIENTED X3, HIS SPEECH NOT DYSPHASIC NOT DYSARTHRIC, EAR NOSE THROAT EXAMINATION NORMAL, MUCOUS MEMBRANES MOIST WITH NO RHINORRHEA, NECK SUPPLE, HEART REGULAR, LUNGS CLEAR, ABDOMEN IS SOFT AND NEURO EXAMINATION SHOWS LEFT HEMIPARESIS WITH BLINDNESS IN THE RIGHT EYE OF LONG DURATION. Objective Data Vital Signs Vital Signs: Vital Signs - 24 hr 11/20/19 14:00 11/20/19 22:00 11/21/19 06:00 Temperature 36.8 C 37.1 C 37.2 C Pulse Rate 95 90 86 Respiratory Rate 16 18 20 Blood Pressure 114/60 131/60 141/80 H Pulse Oximetry 95 100 100 Intake/Output Intake/Output: Intake & Output 11/18/19 11/19/19 11/20/19 11/21/19 23:59 23:59 23:59 23:59 Intake Total 720 960 840 240 Balance 720 960 840 240 Meds/Results Medications: Active Medications Generic Name Dose Route Start Last Admin Trade Name Lee PRN Reason Stop Dose Admin Amlodipine Besylate 10 mg 11/11/19 09:00 11/21/19 08:33 Norvasc PO 10 mg DAILY NELDA Administration Aspirin 325 mg 11/11/19 09:00 11/21/19 08:33 Aspirin PO 11/29/19 09:01 325 mg DAILY NELDA Administration Atorvastatin Calcium 80 mg 11/11/19 09:00 11/21/19 08:33 Lipitor PO 80 mg DAILY NELDA Administration Clopidogrel Bisulfate 75 mg 11/11/19 09:00 11/21/19 08:33 Plavix PO 75 mg DAILY NELDA Administration Hydralazine HCl 25 mg 11/11/19 09:00 11/21/19 08:33 Apresoline Tablet PO 25 mg TID NELDA Administration Polyethylene Glycol 17 gm 11/16/19 21:00 11/20/19 20:08 Miralax PO 17 gm HS NELDA Administration Senna 17.2 mg 11/16/19 21:00 11/20/19 20:08 Senokot Tablet PO 17.2 mg HS NELDA Administration Progress Note: A&P Assessment and Plan (1) Blindness of right eye: Code(s): H54.40 - Blindness, one eye, unspecified eye Status: Acute (2) Peripheral vascular disease: Code(s): I73.9 - Peripheral vascular disease, unspecified Status: Acute (3) Alcohol use: Code(s): Z72.89 - Other problems related to lifestyle Status: Acute (4) Smoking: Code(s): F17.200 - Nicotine dependence, unspecified, uncomplicated Status: Acute (5) Hypertension: Code(s): I10 - Essential (primary) hypertension Status: Acute (6) Left hemiparesis: Code(s): G81.94 - Hemiplegia, unspecified affecting left nondominant side Status: Acute (7) Stroke: Code(s): I63.9 - Cerebral infarction, unspecified Status: Acute Additional Plan REMAINS STABLE INVOLVED IN THE PHYSICAL THERAPY AND WILL CONTINUE THE TREATMENT SUCH
[2019-11-21 14:00] VITALS: BP 139/59; PULSE 57; RESP 18; TEMP 36.6; O2SAT 100
[2019-11-21 22:00] VITALS: BP 151/72; PULSE 100; RESP 19; TEMP 36.8; O2SAT 96
[2019-11-22 06:00] VITALS: BP 140/81; PULSE 90; RESP 18; TEMP 36.3; O2SAT 100
[2019-11-22] MEDS: ATORVASTATIN 40 MG TABLET 80 MG PO (08:02)
[2019-11-22] MEDS: amLODIPine BESYLATE 5 MG TABLET 10 MG PO (08:02)
[2019-11-22] MEDS: ASPIRIN 325 MG TABLET PO (08:02)
[2019-11-22] MEDS: hydrALAZINE HCL 25 MG TABLET PO ×2 (08:02→12:34)
[2019-11-22] MEDS: CLOPIDOGREL BISULFATE 75 MG TABLET PO (08:02)
--- NOTE | 2019-11-22 12:34 | WPDNEURORHBP ---
Subjective Date/time seen: 11/22/19 12:34 Interval history: This 69-year-old Afro [place] gentleman was here after having had stroke with left-sided hemiparesis he did remarkably well he does have underlying peripheral vascular disease for which he is on Plavix he is blind for many years in his right eye was able to achieve goals and did remarkably well Denies any headache nausea vomiting chest pain shortness of breath fever chills or sore throat He is ready to be discharged today Review of Systems Review of Systems: All systems reviewed & are unremarkable except as noted in HPI and below Functional Status Ambulation Ability Ability to Ambulate 10 Feet: Standby Assistance Ability to Ambulate 50 Feet With 2 Turns: Contact Guard Ability to Ambulate 150 Feet: Contact Guard Ambulation Assistive Devices: Walker, Wheeled Exam Narrative: Exam Narrative: patient is awake alert well oriented to time place and person has normal speech and language function has significantly improved left-sided hemiparesis he remains blind in the right eye Head is normocephalic ear nose throat are normal cranial examination reveals mild left-sided facial weakness lungs are clear to auscultation cardiovascular examination negative abdomen is not tender extremities reveal no deformities Objective Data Vital Signs Vital Signs: Vital Signs - 24 hr 11/21/19 14:00 11/21/19 22:00 11/22/19 06:00 Temperature 36.6 C 36.8 C 36.3 C L Pulse Rate 57 L 100 90 Respiratory Rate 18 19 18 Blood Pressure 139/59 L 151/72 H 140/81 Pulse Oximetry 100 96 100 Intake/Output Intake/Output: Intake & Output 11/19/19 11/20/19 11/21/19 11/22/19 23:59 23:59 23:59 23:59 Intake Total 960 840 840 480 Balance 960 840 840 480 Meds/Results Medications: Active Medications Generic Name Dose Route Start Last Admin Trade Name Freq PRN Reason Stop Dose Admin Amlodipine Besylate 10 mg 11/11/19 09:00 11/22/19 08:02 Norvasc PO 10 mg DAILY NEDLA Administration Aspirin 325 mg 11/11/19 09:00 11/22/19 08:02 Aspirin PO 11/29/19 09:01 325 mg DAILY NELDA Administration Atorvastatin Calcium 80 mg 11/11/19 09:00 11/22/19 08:02 Lipitor PO 80 mg DAILY NELDA Administration Clopidogrel Bisulfate 75 mg 11/11/19 09:00 11/22/19 08:02 Plavix PO 75 mg DAILY NELDA Administration Hydralazine HCl 25 mg 11/11/19 09:00 11/22/19 12:34 Apresoline Tablet PO 25 mg TID NELDA Administration Polyethylene Glycol 17 gm 11/16/19 21:00 11/21/19 20:20 Miralax PO Not Given HS NELDA Senna 17.2 mg 11/16/19 21:00 11/21/19 20:21 Senokot Tablet PO Not Given HS NELDA Progress Note: A&P Assessment and Plan (1) Blindness of right eye: Code(s): H54.40 - Blindness, one eye, unspecified eye Status: Acute (2) Peripheral vascular disease: Code(s): I73.9 - Peripheral vascular disease, unspecified Status: Acute (3) Alcohol use: Code(s): Z72.89 - Other problems related to lifestyle Status: Acute (4) Smoking: Code(s): F17.200 - Nicotine dependence, unspecified, uncomplicated Status: Acute (5) Hypertension: Code(s): I10 - Essential (primary) hypertension Status: Acute (6) Left hemiparesis: Code(s): G81.94 - Hemiplegia, unspecified affecting left nondominant side Status: Acute (7) Stroke: Code(s): I63.9 - Cerebral infarction, unspecified Status: Acute Additional Plan patient was, counseled about alcohol and tobacco use future and the implications for the stroke prevention his medication reconciled he will have follow-up appointment with the neurologist at [facility] from where he came to us and also the primary care physician the form of for his handicap placard needs to be filled out by the primary care physician and I shared this with the family members patient should not be driving refraining from alcohol and tobacco and driving r
--- NOTE | 2019-11-26 14:54 | PM.DS ---
DS: Admitting Diagnosis Admitting Diagnosis Admitting Diagnosis: CVA DS: Discharge Diagnosis Discharge Diagnosis (1) Blindness of right eye: Code(s): H54.40 - Blindness, one eye, unspecified eye Status: Acute (2) Peripheral vascular disease: Code(s): I73.9 - Peripheral vascular disease, unspecified Status: Acute (3) Alcohol use: Code(s): Z72.89 - Other problems related to lifestyle Status: Acute (4) Smoking: Code(s): F17.200 - Nicotine dependence, unspecified, uncomplicated Status: Acute (5) Hypertension: Code(s): I10 - Essential (primary) hypertension Status: Acute (6) Left hemiparesis: Code(s): G81.94 - Hemiplegia, unspecified affecting left nondominant side Status: Acute (7) Stroke: Code(s): I63.9 - Cerebral infarction, unspecified Status: Acute DS: Summary Hospital Course Reason for hospitalization: this 69-year-old Af[place] gentleman was admitted primarily because of the stroke and left-sided hemiparesis along with the other medical issues mentioned in the problem list he did very well in over rehab program was able to achieve the quality to improvement measures which I will dictate in the next few lines to be able to go home with home health to follow and the follow-up with his neurologist Hospital Course: during the course of hospitalization he was able to achieve the quality improvement measures as follows Eating independent, oral hygiene independent, toileting supervision, bathing supervision, upper body dressing set up, lower body dressing supervision, footwear set up rolling in bed independent sitting to lying independent sitting to look lying to sitting independent [id number] independent chair transfers set up, toilet transfers sit up, car transfers supervision, walking 10 feet supervision, walking 50 feet with 2 turns supervision, walking 150 feet supervision, walking 10 feet uneven surfaces supervision, cover step supervision, 4 steps supervision, 12 step supervision, became of objects supervision, wheelchair 50 feet independent, wheelchair 150 feet independent, The patient was stable and good enough to go home with home health to follow no falls were recorded Time Spent with Patient Time attestation: Total time spent providing and/or coordinating discharge services: Exam Narrative: Exam Narrative: patient is awake and alert well oriented time place and person he has blindness in his right eye of longstanding duration otherwise eye examinations unremarkable ear nose throat normal lungs are clear neck is supple cardiovascular examination negative or stable vital signs are stable his left-sided hemiparesis has significantly improved and is able to do the stuff primarily with little assistance if at all Discharge Plan Discharge Attending physician on discharge: Raymundo Vitale Discharging Clinician: Raymundo Vitale Anticipated Discharge Date/Time: 11/22/19 12:31 Patient Disposition: Home Health Service Activity: may shower and no driving Diet: as tolerated Discharge Instructions: Per Care Coordination: Patient will have [facility] [place] [facility], PT, OT, and ST services. They can be reached at [phone]. RN please fax discharge instructions to [phone]. Patient Instructions: Antibiotic Form, How to Stop Smoking (DC), Urinary Incontinence (GEN), Safe Use of Anticoagulants (GEN), Stroke (GEN) Stand Alone Forms: General Discharge Information Follow-up/Referrals: PCP [Other] (Follow-up with primary care physician for general health maintenance and well being.) [facility] [Other] Discharge Medications: Continued atorvastatin 80 mg Tablet 80 mg PO DAILY Qty: 30 RF: 0 aspirin 325 mg Tablet 325 mg PO DAILY Qty: 30 RF: 0 hydralazine 25 mg Tablet 25 mg PO TID Qty: 90 RF: 0 clopidogrel 75 mg Tablet 75 mg PO DAILY Qty: 3 RF: 0 amlodip
== END 2019-11-22 13:03 | disposition home health service (06) | DRG 57 ==
PROVIDERS: Admitting Provider Psychiatry & Neurology Neurology; PCP Internal Medicine; Visit Provider Psychiatry & Neurology Neurology
DX: I69.354 Hemiplegia and hemiparesis following cerebral infarction affecting left non-dominant side (principal); E78.5 Hyperlipidemia, unspecified; I10 Essential (primary) hypertension; I73.9 Peripheral vascular disease, unspecified; H54.40 Blindness, one eye, unspecified eye; F17.210 Nicotine dependence, cigarettes, uncomplicated; Z79.02 Long term (current) use of antithrombotics/antiplatelets; Z72.89 Other problems related to lifestyle
CPT/HCPCS: 36415; 80048; 80061; 85025; 92507; 92523; 97110; 97112; 97116; 97129; 97130; 97161; 97165; 97530; 97535; 97542; A9270